=== PATIENT | female | born 1940 | race Caucasian/White ===

== ENCOUNTER 2019-10-03 18:54 | Inpatient (IN) | payer MEDICARE, OTHER ==
[~2019-10-03] VITALS: Ht 165.1 cm; Wt 90.9 kg
[~2019-10-03 18:54] MED LIST: ASPI81TA52 PO; CITA20TA28 PO; CLOP75TA35 PO; HYDR12.55 PO; LORA-269 PO; LOSA25TA96 PO; METO-395 PO; NITR0.4T51 SL; PANT40TA4 PO
[2019-10-03 19:23] LABS: ALANINE AMINOTRANSFERASE 15 U/L (12-78); ALBUMIN 3.2 G/DL (3.4-5.0); ALBUMIN/GLOBULIN RATIO 0.8 (1.1-1.5); ALKALINE PHOSPHATASE 63 IU/L (46-116); ANION GAP 7 (8-16); ASPARTATE AMINO TRANSFERASE 22 U/L (10-37); BILIRUBIN,TOTAL 0.7 MG/DL (0.1-1.0); BLOOD UREA NITROGEN 9 MG/DL (7-18); BUN/CREATININE RATIO 8.6 (6.6-38.0); CALCIUM 9.8 MG/DL (8.5-10.1); CHLORIDE 101 MMOL/L (99-107); CREATININE 1.05 MG/DL (0.40-0.90); GLUCOSE 101 MG/DL (70-104); POTASSIUM 3.2 MMOL/L (3.5-5.1); SODIUM 135 MMOL/L (135-145); TOTAL CARBON DIOXIDE 27.2 MMOL/L (24-32); eGFR 51 ML/MIN
[2019-10-03 19:31] LABS: PARTIAL THROMBOPLASTIN TIME 29 SECONDS (22-32)
[2019-10-03 19:32] LABS: BASOPHILS % (AUTO) 0.6 % (0-1); EOSINOPHILS # (AUTO) 0.2 X10'3 (0-0.9); EOSINOPHILS % (AUTO) 2.4 % (0-6); HEMATOCRIT 33.4 % (35.0-45.0); HEMOGLOBIN 11.3 g/dl (12.0-16.0); LYMPHOCYTES % (AUTO) 30.3 % (21-51); MEAN CORPUSCULAR HEMOGLOBIN 30.4 PG (27.0-31.0); MEAN CORPUSCULAR HGB CONC 33.8 g/dL (33.0-36.5); MEAN PLATELET VOLUME 7.2 FL (7.4-10.4); MONOCYTES # (AUTO) 1.2 X10'3 (0-0.9); NEUTROPHILS # (AUTO) 3.1 X10'3 (1.8-7.7); NEUTROPHILS % (AUTO) 47.7 % (42-75); PLATELET COUNT 324 X10'3 (140-440); RED BLOOD COUNT 3.72 X10'6 (4.20-5.60); RED CELL DISTRIBUTION WIDTH 13.5 % (11.5-14.5); WHITE BLOOD COUNT 6.5 X10'3 (4.5-11.0)
[2019-10-03 22:42] LABS: D-DIMER 3.87 MG/L FEU (0-0.50)
[2019-10-03] MEDS ORDERED: iohexol 350MG/ML 100ml bottle IV ONE (23:00)
[2019-10-04] MEDS ORDERED: furosemide 10 MG/1 ML 10ml inj IV ONE (00:20)
[2019-10-04] MEDS ORDERED: acetaminophen 325mg tablet PO PRN (00:35)
[2019-10-04] MEDS ORDERED: magnesium 2GM in 50ml NS 50 ML IV PRN (00:35)
[2019-10-04] MEDS ORDERED: magnesium hydroxide 30ml (MOM) UD suspension PO PRN (00:35)
[2019-10-04] MEDS ORDERED: bisacodyl 10mg suppository rectal RC PRN (00:35)
[2019-10-04] MEDS ORDERED: mag hydrox/Alum hydrox/simeth 30ml oral suspension PO PRN (00:35)
[2019-10-04] MEDS ORDERED: ondansetron/PF 4mg/2ml inj IV PRN (00:35)
[2019-10-04] MEDS ORDERED: magnesium Cl slow-release 64mg tablet PO PRN (00:35)
[2019-10-04] MEDS ORDERED: magnesium 4gm in 100ml NS 100 ML IV PRN (00:35)
[2019-10-04] MEDS ORDERED: potassium CL 10mEq/100ml bag 100 ML IV PRN ×2 (00:35)
[2019-10-04] MEDS ORDERED: potassium Cl 20 mEq SR tablet PO PRN (00:35)
--- NOTE | 2019-10-04 00:41 | NUR ---
tucked pt into bed, put call light on siderail. BS commode with toilet paper there. Lights dimmed. Encouraged pt to rest.
[2019-10-04] MEDS ORDERED: nitroGLYCERIN 0.4mg SUBLingual tab SL PRN (01:00)
[2019-10-04] MEDS ORDERED: LORazepam 1 MG tablet PO PRN (01:00)
[2019-10-04 01:35] VITALS: BP 158/86
--- NOTE | 2019-10-04 01:35 | NUR ---
Patient in room PCU 3017. I have received report from Arielle RN (ED) and had the opportunity to ask questions and assume patient care. Patient arrived to PCU by curt and ambulated to her bed. Oriented to room and call light. Telemetry placed, VS taken. Will continue to monitor.
[2019-10-04 06:00] VITALS: BP 142/85
--- NOTE | 2019-10-04 06:23 | NUR ---
Problems reprioritized. Patient report given, questions answered & plan of care reviewed with Yue CARMONA.
--- NOTE | 2019-10-04 06:25 | NUR ---
Patient in room PCU 3017. I have received report from Janell and had the opportunity to ask questions and assume patient care.
[2019-10-04] MEDS: K and/or MAG REPLACEMENT MC SCH ×2 (08:00→20:18)
[2019-10-04] MEDS: furosemide 40mg/4ml inj IV SCH ×2 (08:34→20:18)
[2019-10-04] MEDS: citalopram 20mg tablet PO SCH (08:34)
[2019-10-04] MEDS: docusate sod 100mg capsule PO SCH ×2 (08:34→20:18)
[2019-10-04] MEDS: HYDROchlorothiazide 12.5mg capsule PO SCH (08:35)
[2019-10-04] MEDS: aspirin 81mg tablet.DR PO SCH (08:35)
[2019-10-04] MEDS: clopidogrel 75mg tablet PO SCH (08:35)
[2019-10-04] MEDS: losartan 50mg tablet PO SCH (08:35)
[2019-10-04] MEDS: pantoprazole 40mg Tablet.DR PO SCH (08:36)
[2019-10-04] MEDS: metoprolol succinate 25mg (24-HOUR) SR. Tablet PO SCH (08:36)
[2019-10-04 11:00] VITALS: BP 143/71
--- NOTE | 2019-10-04 11:46 | NUR ---
PAGER ID: [phone] MESSAGE: Lamont, for Ms. Son in [id number] is here. They have questions regarding plan of care and DC. Thank you Yue
[2019-10-04] MEDS: potassium Cl 20 mEq SR tablet PO PRN ×3 (11:50→20:21)
[2019-10-04 12:34] VITALS: BP 140/81
[2019-10-04] MEDS: atorvastatin 20mg tablet PO SCH (13:56)
[2019-10-04 18:00] VITALS: BP 139/76
--- NOTE | 2019-10-04 18:13 | NUR ---
Problems reprioritized. Patient report given, questions answered & plan of care reviewed with
--- NOTE | 2019-10-04 18:18 | NUR ---
Patient in room [place] [address]. I have received report from Keyla CARMONA and had the opportunity to ask questions and assume patient care. Addendum: 10/04/19 at 1840 by Mesfin Jaimes RN Patient in room [place] [address]. I have received report from Yue CARMONA and had the opportunity to ask questions and assume patient care.
[2019-10-04 22:00] VITALS: BP 155/81
[2019-10-05 03:00] VITALS: BP 141/63
--- NOTE | 2019-10-05 06:22 | NUR ---
Problems reprioritized. Patient report given, questions answered & plan of care reviewed with Mary CARMONA.
--- NOTE | 2019-10-05 06:27 | NUR ---
Patient in room PCU 3017. I have received report from Rubio CARMONA and had the opportunity to ask questions and assume patient care. Patient is resting in bed at this time, unlabored respirations, will continue to monitor.
[2019-10-05 06:32] LABS: ALANINE AMINOTRANSFERASE 10 U/L (12-78); ALBUMIN 3.3 G/DL (3.4-5.0); ALBUMIN/GLOBULIN RATIO 0.9 (1.1-1.5); ALKALINE PHOSPHATASE 57 IU/L (46-116); ANION GAP 9 (8-16); ASPARTATE AMINO TRANSFERASE 25 U/L (10-37); BILIRUBIN,TOTAL 0.7 MG/DL (0.1-1.0); BLOOD UREA NITROGEN 10 MG/DL (7-18); CALCIUM 10.3 MG/DL (8.5-10.1); CHLORIDE 99 MMOL/L (99-107); CREATININE 0.83 MG/DL (0.40-0.90); GLUCOSE 109 MG/DL (70-104); MAGNESIUM 1.6 MG/DL (1.5-2.4); PHOSPHORUS 3.9 MG/DL (2.3-4.5); POTASSIUM 3.4 MMOL/L (3.5-5.1); SODIUM 135 MMOL/L (135-145); TOTAL CARBON DIOXIDE 26.8 MMOL/L (24-32); TOTAL PROTEIN 7.1 G/DL (6.4-8.2); eGFR 67 ML/MIN
[2019-10-05 06:39] LABS: BASOPHILS % (AUTO) 0.5 % (0-1); EOSINOPHILS # (AUTO) 0.2 X10'3 (0-0.9); HEMATOCRIT 32.9 % (35.0-45.0); HEMOGLOBIN 11.5 g/dl (12.0-16.0); LYMPHOCYTES # (AUTO) 1.6 X10'3 (1.1-4.8); LYMPHOCYTES % (AUTO) 31.5 % (21-51); MEAN CORPUSCULAR HGB CONC 34.8 g/dL (33.0-36.5); MEAN CORPUSCULAR VOLUME 89.1 FL (78-98); MEAN PLATELET VOLUME 7.2 FL (7.4-10.4); MONOCYTES # (AUTO) 0.9 X10'3 (0-0.9); MONOCYTES % (AUTO) 18.4 % (2-12); NEUTROPHILS # (AUTO) 2.2 X10'3 (1.8-7.7); NEUTROPHILS % (AUTO) 45.6 % (42-75); PLATELET COUNT 278 X10'3 (140-440); RED CELL DISTRIBUTION WIDTH 13.5 % (11.5-14.5); WHITE BLOOD COUNT 4.9 X10'3 (4.5-11.0)
[2019-10-05 07:00] VITALS: BP 122/72
[2019-10-05] MEDS: furosemide 40mg/4ml inj IV SCH (07:33)
[2019-10-05] MEDS: docusate sod 100mg capsule PO SCH (07:33)
[2019-10-05] MEDS: pantoprazole 40mg Tablet.DR PO SCH (07:33)
[2019-10-05] MEDS: HYDROchlorothiazide 12.5mg capsule PO SCH (07:33)
[2019-10-05] MEDS: losartan 50mg tablet PO SCH (07:33)
[2019-10-05] MEDS: aspirin 81mg tablet.DR PO SCH (07:33)
[2019-10-05] MEDS: atorvastatin 20mg tablet PO SCH (07:33)
[2019-10-05] MEDS: clopidogrel 75mg tablet PO SCH (07:33)
[2019-10-05] MEDS: potassium Cl 20 mEq SR tablet PO PRN (07:33)
[2019-10-05] MEDS: citalopram 20mg tablet PO SCH (07:33)
[2019-10-05] MEDS: metoprolol succinate 25mg (24-HOUR) SR. Tablet PO SCH (07:34)
[2019-10-05] MEDS: K and/or MAG REPLACEMENT MC SCH (08:00)
[2019-10-05] MEDS ORDERED: ATOR20TA66 PO (08:20)
[2019-10-05] MEDS ORDERED: FURO-150 PO (08:20)
--- NOTE | 2019-10-05 10:40 | NUR ---
Patient discharged home at 1040 with daughter. Patient reviewed discharge packet before signing, PIV removed with cannula intact, telemetry monitoring d/c'd, RX were faxed to pharmacy. Patient belongings were sent home with patient. Patient was alert and appropriate, left via private vehicle.
--- NOTE | 2019-10-06 11:04 | NUR ---
Case management DC follow: spoke to pt via telephone: reports "breathing good", but has very "low energy". pt on way to appt w/PCP at 1130 10/06/2019. pt prepared to ask PCP questions and will be seeing Dr Walker as well. Denies emergent SOB, cp, acute general pain, NV, dizziness. Verbalizes understanding of meds, why prescribed, no ase noted r/t polypharm, intro of new meds. Verbalizes understanding of s/s that would warrant 9-11/ER visit for evaluation. Needs met, questions answered at DC, no further questions at this time.
== END 2019-10-05 10:40 | disposition home health service (06) | DRG 280 ==
LOC: ER 18:54 → ED HOLD 10-04 00:34 → UNDOADMIN 10-04 00:36 → PCU 3S 10-04 01:30 → ED HOLD 10-04 01:30
PROVIDERS: ADMIT Family Medicine; ATTEND Internal Medicine
PROC: B32T1ZZ Computerized Tomography (CT Scan) of Left Pulmonary Artery using Low Osmolar Contrast (ICD-10-PCS; principal; 2019-10-03)
PROC: B3201ZZ Computerized Tomography (CT Scan) of Thoracic Aorta using Low Osmolar Contrast (ICD-10-PCS; 2019-10-03)
PROC: B32S1ZZ Computerized Tomography (CT Scan) of Right Pulmonary Artery using Low Osmolar Contrast (ICD-10-PCS; 2019-10-03)
DX: I11.0 Hypertensive heart disease with heart failure (principal); I21.A1 Myocardial infarction type 2; I50.21 Acute systolic (congestive) heart failure; E87.6 Hypokalemia; I25.10 Atherosclerotic heart disease of native coronary artery without angina pectoris; I25.2 Old myocardial infarction; Z79.02 Long term (current) use of antithrombotics/antiplatelets; Z79.899 Other long term (current) drug therapy; Z79.82 Long term (current) use of aspirin
CPT/HCPCS: 36415; 71046; 71275; 76604; 80053; 83735; 83880; 84100; 84484; 85025; 85379; 85610; 85730; 87081; 93005; 99285; G0378; J1940; Q9967